=== PATIENT | female | born 1995 | race Caucasian/White ===

== ENCOUNTER 2018-11-14 20:17 | Emergency (ER) | payer MEDICAID ==
[~2018-11-14] VITALS: Ht 162.6 cm; Wt 74.8 kg
[2018-11-14 20:27] VITALS: Ht 162.6 cm; Wt 74.8 kg
[2018-11-14 22:34] VITALS: BP 115/67
== END 2018-11-14 22:34 | disposition home or self-care (01) ==
LOC: ED 20:17
DX: O23.42 Unspecified infection of urinary tract in pregnancy, second trimester (principal); Z3A.25 25 weeks gestation of pregnancy

== ENCOUNTER 2019-06-23 08:05 | Emergency (ER) | payer MEDICAID ==
[~2019-06-23] VITALS: Ht 162.6 cm; Wt 74.4 kg
[2019-06-23 08:09] VITALS: BP 96/66; Ht 162.6 cm; Wt 74.4 kg
== END 2019-06-23 09:20 | disposition home or self-care (01) ==
LOC: ED 08:05
DX: H61.21 Impacted cerumen, right ear (principal)

== ENCOUNTER 2019-10-01 19:11 | Emergency (ER) | payer SELFPAY ==
[~2019-10-01] VITALS: Ht 162.6 cm; Wt 75.8 kg
[2019-10-01 19:28] VITALS: Ht 162.6 cm; Wt 75.8 kg
[2019-10-01 21:25] VITALS: BP 99/66
== END 2019-10-01 21:25 | disposition home or self-care (01) ==
LOC: ED 19:11
DX: J40 Bronchitis, not specified as acute or chronic (principal)

== ENCOUNTER 2019-11-30 14:54 | Emergency (ER) | payer MEDICAID ==
[~2019-11-30] VITALS: Ht 162.6 cm; Wt 74.8 kg
[2019-11-30 15:14] VITALS: Ht 162.6 cm; Wt 74.8 kg
[2019-11-30 17:01] VITALS: BP 119/78
== END 2019-11-30 17:01 | disposition home or self-care (01) ==
LOC: ED 14:54
DX: R05 Cough (principal); Z20.828 Contact with and (suspected) exposure to other viral communicable diseases
CPT/HCPCS: 87804; Q0092